=== PATIENT | female | born 1995 | race Caucasian/White ===

== ENCOUNTER 2018-02-19 13:31 | Emergency (ER) | payer OTHER ==
--- OUTSIDE RECORDS SUMMARY | 2018-02-19 13:36 | XMS REPORT ---
:1995 External Reference #:[id number] Author Organization [employer] Address [address] [place] [address] Phone [phone] Care Team Providers Name Role Phone Patient's Choice Primary Care Physician Unavailable Payers Type Date Identification Numbers Payment Provider Subscriber Commercial Policy Number: [id number] [employer] Adrianne Solano PayID: [id number] [address] [place] [address] Problems Description No Information Family History Date Family Member(s) Problem(s) Comments General Hypertension Social History Type Date Description Comments Lives With Alone 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 Use Currently consumes alcohol Smoking Patient has never smoked Exercise Type/Frequency Exercises regularly Allergies, Adverse Reactions, Alerts Date Description Reaction Status Severity Comments 02/10/2018 NKDA active Medications Medication Date Status Form Strength Qnty SIG Indications Ordering Provider 24 00/00/00 Active Tablets 1-20mg-mcg(2 1 by Unknown 00 4) mouth daliy Vital Signs Date Vital Result Comment 02/10/2018 Height 65 inches 5'5" Weight 163.00 lb Heart Rate 50 /min Respiratory Rate 16 /min Body Temperature 98.7 F Pain Level 0 BMI (Body Mass Index) 27.1 kg/m2 Results Description No Information Procedures Date CPT Code Description Status 02/10/2018 24807 Inject/Drain Joint/Bursa Small W/O US Completed Encounters Type Date Location Provider CPT E/M Dx Office Visit 02/10/2018 [facility] 88999 D48.1 10:15a C.MBritton STOREY-C Plan of Care 02/10/2018 - JOSEPH BhatCD48.1 Neoplasm of uncertain behavior of connctv/soft tissNew Xrays:Wrist Left 3+ VWSFollow up:Follow up: As needed
--- OUTSIDE RECORDS SUMMARY | 2018-02-19 13:36 | XMS REPORT ---
:1995 External Reference #:[id number] Author Organization [employer] Address [address] [place] [address] [place] [address] Phone [phone] Care Team Providers Name Role Phone Patient's Choice Primary Care Physician Unavailable Payers Type Date Identification Numbers Payment Provider Subscriber Commercial Policy Number: [id number] [employer] Insurance Adrianne Solano PayID: [id number] [address] [place] [address] Problems Description No Information Family History Date Family Member(s) Problem(s) Comments General Hypertension Social History Type Date Description Comments 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
[2018-02-19 13:43] VITALS: BP 134/85
--- NOTE | 2018-02-19 13:54 | UC ---
Ear Complaint HPI - HPI Summary HPI Summary: This patient is a 22 year old F presenting to [facility] with a chief complaint of bilat ear pressure since the morning of 02/17/2018. Patient reports she feels like I am underwater, dizziness, and light-headedness. Patient denies drainage , sinus congestion, headache, rhinorrhea, trauma, and sore throat. She took Sudafed on 02/17/2018 which seemed to relieve the symptoms until this morning when it returned and worsened. She took Sudafed again this morning at 10:30 with little improvement She has not traveled anywhere by airplane or travelled. She had h.o tympanostomytubes. No fever, chills. no sore throat. nose slightly stuff. pt's medications reviewed this visit - History of Current Complaint Chief Complaint: UCEar Stated Complaint: EAR ACHE Time Seen by Provider: 02/19/18 13:35 Hx Obtained From: Patient Hx Last Menstrual Period: 01/29/18 Onset/Duration: Lasting Days - Since 02/17/2018, Still Present Pain Intensity: 0 Associated Signs/Symptoms: Positive: Hearing Loss. Negative: Trauma to Ear - Allergies/Home Medications Allergies/Adverse Reactions: Allergies Allergy/AdvReac Type Severity Reaction Status Date / Time No Known Allergies Allergy Verified 02/19/18 13:35 Home Medications: Home Medications Pseudoephedrine HCL ER TAB* [Sudafed 12 Hour*] 120 mg PO BID PRN 02/19/18 [ History Confirmed 02/19/18] ValACYclovir (*) [Valtrex 500 mg (*)] 1 tab PO DAILY PRN 02/19/18 [History Confirmed 02/19/18] PMH/Surg Hx/FS Hx/Imm Hx Previously Healthy: Yes - History of eye infection and ear tube - Surgical History Surgical History: Yes Surgery Procedure, Year, and Place: LEFT KNEE ARTHROSCOPY-[facility]. RIGHT KNEE ARTHROSCOPY- [facility]. TONSILECTOMY, KIDNEY STONE REMOVED, WISDOM TEETH - Family History Known Family History: Negative: Hypertension - Social History Occupation: Student Lives: With Family Alcohol Use: Occasionally Substance Use Type: None Smoking Status (MU): Never Smoked Tobacco Review of Systems Constitutional: Other - Denies trauma ENT: Ear Ache - Bilat ear pressure since morning of 02/17/2018. She feels "like I am underwater", Sinus Congestion - mild, Other - Denies ear dranage, denies rhinorrhea Neurological: Headache - Denies, Other - Dizziness, light-headedness All Other Systems Reviewed And Are Negative: Yes Physical Exam - Summary Physical Exam Summary: Vital Signs Reviewed: Yes A+Ox3, no distress Eyes: Conjunctiva Clear, TANNER. EOM intact and full ENT: Hearing grossly normal right TM + scar tissue on TM, - thick appearing fluid, no erythema, mild buldge left TM + scant fluid, turbinates boggy, mmoist, uvula midline, no exudate, no erythema Neck: Positive: Supple Respiratory: Positive: No respiratory distress, No accessory muscle use + CTA throughout no w/r Cardiovascular: RRR nl s1, s2 no m/r CBT <2 sec abd soft + BS nt/nd no guarding, no distension Musculoskeletal Exam: WEBB x 4 without difficulty Strength Intact, ROM Intact Neurological: Positive: Alert, + sensation throughout Psychological: Positive: Normal Response To Family Skin: Positive: no rash, no ecchymosis Triage Information Reviewed: Yes Vital Signs: Initial Vital Signs Temp 98.5 F 02/19/18 13:37 Pulse 66 02/19/18 13:37 Resp 16 02/19/18 13:37 BP 134/85 02/19/18 13:37 Pulse Ox 100 02/19/18 13:37 Vital Signs Reviewed: Yes Ear Complaint Course/Dx - Course Course Of Treatment: pt with progression congestion and fullness bl ears. pt with fluid right TM with PM, serous fluid left turbiantes inflammed. Rx amox, flonase, Claritin-D (stop sudafed_). hydrate. secretion precaution. return precaution - Differential Dx/Diagnosis Provider Diagnoses: otitis media Discharge - Sign-Out/Discharge Documenting (check all that apply): Patient Departure All imaging exams completed and their final reports reviewed: No Studies - Discharge Plan Condition: Stable Disposition: HOME Prescriptions: Amoxicillin PO (*) [Amoxicillin 500 MG CAP*] 500 mg PO Q12H #14 cap Fluticasone NASAL SPRAY 50MCG* [Flonase NASAL SPRAY 50MCG*] 2 spray BOTH NARES DAILY #1 btl Patient Education Materials: Antihistamine/Decongestant (By mouth), Ear Infection (ED) Referrals: No Primary Care Phys,NOPCP [Primary Care Provider] - Additional Instructions: - Stay well hydrated. Drink plenty of non-alcoholic, non-caffinated beverages - Take antibiotics as prescribed until gone - It is recommended you take a combination anti-histamine / decongestant such as alberto-D, Zyrtec-D, Claritin-D. Do NOT take Sudafed while taking this medication - These infections are spread by secretions. do NOT share eating or drinking utensils. After you have been on antibiotics for 2 days, change your toothbrush and your pillowcase. - Okay to alternate ibuprofen (advil, motrin) and tylenol every 3 hours for pain - applying a warm cloth or taking a hot shower may help with congestion - contact your doctor or return here with questions or concerns - Billing Disposition and Condition Condition: STABLE Disposition: Home - Attestation Statements Document Initiated by Osiele: Yes Documenting Scribe: Poli Sotelo Provider For Whom Scribe is Documenting (Include Credential): Lisa Arcos MD Scribe Attestation: Poli Phillips, scribed for Lisa Arcos MD on 02/20/18 at 0746. Scribe Documentation Reviewed: Yes Provider Attestation: The documentation as recorded by the Poli guidry accurately reflects the service I personally performed and the decisions made by me, Lisa Arcos MD
== END 2018-02-19 14:10 | disposition home or self-care (01) ==
LOC: UCEAST 13:31
DX: H66.93 Otitis media, unspecified, bilateral (principal)
CPT/HCPCS: 99212; G0463